=== PATIENT | male | born 1990 | race Caucasian/White ===

== ENCOUNTER → 2020-02-16 11:13 | Outpatient (BNVA) | payer BC, SELFPAY | PROVIDERS: Family Provider Registered Nurse; Visit Provider Podiatrist Foot & Ankle Surgery | DX: S92.352A Displaced fracture of fifth metatarsal bone, left foot, initial encounter for closed fracture (principal); X58.XXXA Exposure to other specified factors, initial encounter | CPT/HCPCS: 73630 ==

== ENCOUNTER 2020-02-16 14:17 | Outpatient (CLI) | payer BC, SELFPAY | END 2020-02-16 14:18 | disposition home or self-care (01) | LOC: SPT 14:18 | PROVIDERS: Family Provider Registered Nurse; Visit Provider Podiatrist Foot & Ankle Surgery | DX: Z46.89 Encounter for fitting and adjustment of other specified devices (principal); S92.335D Nondisplaced fracture of third metatarsal bone, left foot, subsequent encounter for fracture with routine healing; X58.XXXD Exposure to other specified factors, subsequent encounter | CPT/HCPCS: 97760; L4361 ==

== ENCOUNTER → 2020-03-08 13:28 | Outpatient (BNVA) | payer OTHER, SELFPAY | PROVIDERS: Family Provider Registered Nurse; Visit Provider Podiatrist Foot & Ankle Surgery | DX: S92.352A Displaced fracture of fifth metatarsal bone, left foot, initial encounter for closed fracture (principal); S92.355A Nondisplaced fracture of fifth metatarsal bone, left foot, initial encounter for closed fracture; X58.XXXA Exposure to other specified factors, initial encounter | CPT/HCPCS: 73630 ==

== ENCOUNTER → 2020-03-25 13:12 | Outpatient (BNVA) | payer OTHER, SELFPAY | PROVIDERS: Family Provider Registered Nurse; Visit Provider Podiatrist Foot & Ankle Surgery | DX: S92.355A Nondisplaced fracture of fifth metatarsal bone, left foot, initial encounter for closed fracture (principal); X58.XXXA Exposure to other specified factors, initial encounter | CPT/HCPCS: 73630 ==

== ENCOUNTER → 2020-04-15 09:47 | Outpatient (BNVA) | payer OTHER, SELFPAY | PROVIDERS: Family Provider Registered Nurse; Visit Provider Podiatrist Foot & Ankle Surgery | DX: S92.352A Displaced fracture of fifth metatarsal bone, left foot, initial encounter for closed fracture (principal); S92.355A Nondisplaced fracture of fifth metatarsal bone, left foot, initial encounter for closed fracture; X58.XXXA Exposure to other specified factors, initial encounter | CPT/HCPCS: 73630 ==

== ENCOUNTER → 2020-05-08 12:59 | Outpatient (BNVA) | payer OTHER, SELFPAY | PROVIDERS: Family Provider Registered Nurse; Visit Provider Podiatrist Foot & Ankle Surgery | DX: S92.355A Nondisplaced fracture of fifth metatarsal bone, left foot, initial encounter for closed fracture (principal); Z11.52 Encounter for screening for COVID-19; X58.XXXA Exposure to other specified factors, initial encounter | CPT/HCPCS: 87635 ==

== ENCOUNTER 2020-05-14 06:01 | Day surgery (SDC) | payer OTHER, SELFPAY ==
[2020-05-13 16:06] VITALS: BMI 29.6
[2020-05-14] VITALS (9 sets, daily range): BP systolic 109–135; BP diastolic 65–87; PULSE 47–54; RESP 16–18; TEMP 36.1–36.9; O2SAT 95–100
--- NOTE | 2020-05-14 06:19 | ANES.PREANE2 ---
Pre-Anesthetic Assessment Pre-Anesthetic Assessment: Height/Weight: Height 1.73 m Weight 88.451 kg Preop Diagnosis: Left fifth metatarsal fracture Proposed Procedure: Operation Date: 05/14/20 07:00 Proposed Procedures p ORIF Left Fifth Metatarsal Fracture 72138 S92.355A(Left) - Madan Dean, DPM Was Beta Yanely taken within 24 hours: N/A Social: Social History: No alcohol and No tobacco Exam: Pre-Anes Outpt Exam: alert, oriented x 3, clear to auscultation bilaterally and regular rate & rhythm Airway: Submandibular: WNL Cervical ROM: WNL MP: 2 History/ROS: No significant complaints Pulmonary: Pulmonary: None reported CV/HEM: CV/HEM: None reported : : None reported Hepatic: Hepatic: None reported GI: GI: None reported Metabolic: Metabolic: None reported Musc/skel: Musc/skel: None reported Neuropsych: Neuropsych: None reported Anesthetic Plan: ASA status: 1 Anesthesia: General PFSH Anesthesia PFSH: Medical History History of fracture of left ankle Surgical History History of right knee surgery Family History Mother Cancer Grandfather Hypertension Grandmother Hypertension Social History Smoking and tobacco status: never smoked Second hand smoke exposure: No Alcohol intake: never Data Anesthesia Cardiac Studies: No Data to Display
--- NOTE | 2020-05-14 06:33 | PM.OPSURHP ---
Providers/Chief Complaint Primary Care Provider: URSULA Shell Chief Complaint: Left 5th Metatarsal fracture History of Present Illness Alejandro Roberts is a 30 year old male patient here today for evaluation of Closed nondisplaced fracture of fifth metatarsal bone of left foot. DOI: 02/07/2020. He is almost 10 weeks out from his injury. He endorses no pain at time of triage. Patient has been weight bearing as tolerated in a cam boot. Patient has been elevating some when at home. Who presents preop for surgical consultation and plan for surgery today is ORIF of left fifth metatarsal due to nonhealing. Patient denies any subjective nausea, vomiting, fever, chills, shortness of breath or chest pain. Review of Systems General: Reports: 10 or more systems reviewed and unremarkable except in HPI and below Const: Denies: fever(s), chills or fatigue Eyes: Denies: change in vision Card: Reports: swelling of feet/ankles; Denies: chest pain or palpitations Resp: Denies: dyspnea GI: Denies: abdominal pain, nausea, vomiting, diarrhea or constipation Musc: Reports: extremity pain Skin/Breast: Denies: changes in skin color Neuro: Reports: difficulty walking; Denies: numbness in extremities Medications/Allergies Home Medications Medication Instructions Recorded Confirmed Last Taken Type cam boot #1 ea 02/16/20 04/15/20 Unknown Rx Allergies Allergy/AdvReac Type Severity Reaction Status Date / Time No Known Allergies Allergy Verified 05/14/20 06:26 PFSH PFSH: Medical History History of fracture of left ankle Surgical History History of right knee surgery Family History Mother Cancer Grandfather Hypertension Grandmother Hypertension Social History Smoking and tobacco status: never smoked Second hand smoke exposure: No Alcohol intake: never Vital Signs Vitals Signs: Last Vital Signs Temp 96.9 F L 05/14/20 06:13 Pulse 50 L 05/14/20 06:13 Resp 18 05/14/20 06:13 BP 135/79 05/14/20 06:13 Pulse Ox 97 05/14/20 06:13 Weight: Weight last 48 hrs Weight 195 lb Physical Exam Narrative: EXAM NARRATIVE: Patient is alert and oriented ?3 and in no acute distress. The following is a focused bilateral lower extremity exam. VASCULAR: Dorsalis pedis and posterior tibial arteries palpable +2. Capillary refill time less than 3 seconds to the distal hallux bilaterally. Calf is supple and nontender proximally and distally. No pedal edema appreciated. Pedal hair growth present. NEUROLOGICAL: Epicritic and protopathic sensations grossly intact to the lower extremities. +2 Achilles tendon reflex noted bilaterally. Negative Tinel sign upon percussion of lower extremity nerves. DERMATOLOGICAL: Lower extremity skin is well-hydrated, normal texture and turgor. There are no open sores or lesions noted to the lower extremities. No erythema or ecchymosis present to the bilateral legs and feet. Dystrophic left great toenail MUSCULOSKELETAL: Pain to palpation left fifth metatarsal proximally. No palpable mass along the course of the plantar fascia appreciated. No pain to palpation along the course of the bilateral Achilles tendon. No pain to palpation along the course posterior tibial tendon or peroneal tendons. No pain with [id number] compression of calcaneus, bilaterally. Muscle strength is 5/5 in all 3 cardinal planes pain-free without guarding to the foot and ankle, bilaterally Resp: COMMON NORMALS: normal respiratory effort, No retractions, No use of accessory muscles, clear to auscultation bilaterally and percussion normal EFFORT & INSPECTION: Yes able to speak in complete sentences and Yes symmetric chest movement Cardio: COMMON NORMALS: regular rate, regular rhythm, S1 normal heart sound present, S2 normal heart sound present and Peripheral pulses 2+ throughout A&P Assessment and plan (1) Left foot pain: Status: Acute (2) Nondisplaced fracture of fifth left metatarsal bone with delayed healing: Status: Acute Qualifiers: Fracture type: closed Qualified Code(s): S92.355G - Nondisplaced fracture of fifth metatarsal bone, left foot, subsequent encounter for fracture with delayed healing Sustained a left fifth metatarsal fracture greater than 3 months of conservative care consisting of nonweightbearing, utilizing crutches and Cam boot as has a delayed union and is continued to be symptomatic he has pain with weightbearing in a cam boot at this time. Discussed surgical fixation he would like to proceed. Risks include pain, bleeding, numbness, infection, delayed union, malunion, nonunion, hardware failure, hardware irritation, damage to adjacent soft tissue structures and need for further surgical intervention. Patient is agreeable wishes to proceed. Also risk for DVT, PE, heart attack, stroke and . I evaluated patient preoperatively informed consent is signed, all questions answered to patient satisfaction. No guarantees written, expressed or implied. Patient wishes to proceed. Coding Level of Care Code Acute Alarm Technician for Chg Fwd Diagnoses Left foot pain M79.672 Nondisplaced fracture of fifth left metatarsal bone with delayed healing S92.355G Fracture type: closed
--- NOTE | 2020-05-14 06:36 | W.PM.OPSUD ---
Surgery/Procedure H&P Update DATE OF PROCEDURE: May 14, 2020 DATE H&P PERFORMED: 04/16/20 H&P UPDATE INFORMATION: I have reviewed H&P completed within last 30 days, I have examined patient prior to procedure, No changes to prior documentation and H&P is in [facility] [place] [facility] on date indicated PREOP DIAGNOSIS: Left fifth metatarsal fracture PLANNED PROCEDURE: Operation Date: 05/14/20 07:00 Proposed Procedures p ORIF Left Fifth Metatarsal Fracture 15998 S92.355A(Left) - Madan Dean DPM
--- NOTE | 2020-05-14 06:37 | P.OP_ITS ---
Operative Report Date of procedure: May 14, 2020 Pre-op Diagnosis: Left fifth metatarsal fracture Post-op diagnosis: same Procedure Done: Open reduction internal fixation left Fifth Metatarsal Fracture 21513 Implants: [place] 28 partially-threaded headed cannulated screw 5.5 mm x 50 mm, 4-0 Vicryl, 4-0 nylon Specimens removed/disposition: None Pathology: none sent Surgeon: Madan Dean D.P.M. Independent Film Maker: Richie Anesthesia: MAC Estimated blood loss: Less than 5 mL Tourniquet time: See intraoperative documentation IV fluids: None Urine output: None Complications: None Findings: None Condition: stable Disposition: PACU Brief History: 3 months of failed conservative treatment and delayed union appreciated at the left fifth metatarsal fracture. Patient received to undergo surgical intervention so he can get back to normal activities and increases chances of healing. Risks discussed at length versus benefits preoperatively. All questions answered to patient satisfaction. Informed consent is signed, patient wishes to proceed. Procedure: Under mild sedation the patient was brought to the operating room and placed on the operating table in supine position. A timeout was performed. Anesthesia was administered by the anesthesia service. Local anesthesia injected by myself 20 cc of 1% lidocaine and 0.5 so Marcaine plain one-to-one mixture and a proximal field block to the left lateral foot. Well-padded pneumatic tourniquet applied to the left ankle. Left lower extremity was then scrubbed, prepped and draped utilizing normal aseptic technique. Left foot was examined a weighted with an Esmarch bandage and a tourniquet inflated to 250 mmHg. Attention was directed to the left fifth metatarsal where a percutaneous guidewire was inserted down the intramedullary canal this was confirmed with AP oblique and lateral views and noted to be in the center of the left fifth metatarsal intramedullary canal. Next utilizing standard AO technique a [place] 28 5.5 mm partially-threaded cannulated headed screw was inserted across the fracture site from proximal to distal with excellent bony apposition and compression noted. Placement of orthopedic hardware confirmed with intraoperative fluoroscopy noted be excellent in all 3 cardinal planes with excellent compression at the fracture site. Incision site was flushed with saline solution and subcutaneous tissue closed utilizing 4-0 Vicryl skin closed utilizing 4-0 nylon. Tourniquet was deflated and a prompt hyperemic response is noted to the distal digits of the left foot. Patient tolerated the procedure and anesthesia well and was transferred to the PACU with vital signs stable and vascular status intact. Following a period of postoperative monitoring he will be discharged home is to remain strict nonweightbearing to the left lower extremity. He was prescribed [place] 10/325 mg to be taken as needed judiciously every 4-6 hours for pain. This was sent to [facility] in [place]. Patient given my cell phone number is to contact with any postoperative questions or concerns. He is to take an 81 mg aspirin once daily for DVT prophylaxis.
[2020-05-14] MEDS: sodium chloride 0.9% 1,000 ML 30 ML IV (06:49)
[2020-05-14] MEDS: lidocaine 1% INJ 20 mL INJECTION (07:29)
--- NOTE | 2020-05-14 08:17 | XR_ITS ---
WS: [id number] Left foot, 3 views, 05/14/2020 Clinical Data: post op Comparison: Left foot, 04/15/2020. Findings: There is an orthopedic screw in the proximal portion of the left fifth metatarsal reducing the proxim al fracture. The repair of the bimalleolar fracture with internal fixation has not changed. XR/XR foot LT min 3V* [id number] Impression: Internal fixation of left fifth metatarsal fracture.
--- NOTE | 2020-05-14 09:16 | ANE.PACU2 ---
Inpatient post-anesthesia follow up: Airway intact: Yes Vital signs: Temperature 98.4 F Pulse Rate 50 Respiratory Rate 18 Blood Pressure 134/87 Pulse Oximetry 100 Oxygen Delivery Me thod Room Air Oxygen Flow Rate Fraction of Inspir ed Oxygen Hydration adequate: Yes Nausea and vomiting: No Pain level: 2 Mental status: Baseline
[2020-05-14] MEDS: HYDROcodone-acetaminophen 10-325 mg Tablet 1 TAB PO (09:40)
== END 2020-05-14 09:36 | disposition home or self-care (01) ==
PROVIDERS: PCP Registered Nurse; Visit Provider Podiatrist Foot & Ankle Surgery
PROC: (CPT 28485; principal; 2020-05-14 07:00)
DX: S92.352A Displaced fracture of fifth metatarsal bone, left foot, initial encounter for closed fracture (principal); X58.XXXA Exposure to other specified factors, initial encounter
CPT/HCPCS: 28485; 73630; 96365; C1713; J0690; J2250; J2405; J2704; J3010; J3490; J7030

== ENCOUNTER → 2020-05-28 14:09 | Outpatient (BNVA) | payer OTHER, SELFPAY | PROVIDERS: PCP Registered Nurse; Visit Provider Podiatrist Foot & Ankle Surgery | DX: Z48.89 Encounter for other specified surgical aftercare (principal); S92.355G Nondisplaced fracture of fifth metatarsal bone, left foot, subsequent encounter for fracture with delayed healing | CPT/HCPCS: 73630 ==

== ENCOUNTER → 2020-06-10 13:18 | Outpatient (BNVA) | payer OTHER, SELFPAY | PROVIDERS: PCP Registered Nurse; Visit Provider Podiatrist Foot & Ankle Surgery | DX: Z48.89 Encounter for other specified surgical aftercare (principal) | CPT/HCPCS: 73630 ==

== ENCOUNTER → 2020-06-24 13:15 | Outpatient (BNVA) | payer OTHER, SELFPAY | PROVIDERS: PCP Registered Nurse; Visit Provider Podiatrist Foot & Ankle Surgery | DX: Z48.89 Encounter for other specified surgical aftercare (principal); Z98.890 Other specified postprocedural states | CPT/HCPCS: 73630 ==

== ENCOUNTER → 2020-07-08 13:33 | Outpatient (BNVA) | payer OTHER, SELFPAY | PROVIDERS: PCP Registered Nurse; Visit Provider Podiatrist Foot & Ankle Surgery | DX: Z48.89 Encounter for other specified surgical aftercare (principal); S92.355G Nondisplaced fracture of fifth metatarsal bone, left foot, subsequent encounter for fracture with delayed healing; M79.672 Pain in left foot; X50.1XXD Overexertion from prolonged static or awkward postures, subsequent encounter | CPT/HCPCS: 73630 ==

== ENCOUNTER → 2020-07-27 14:25 | Outpatient (BNVA) | payer OTHER, SELFPAY | PROVIDERS: PCP Registered Nurse; Visit Provider Podiatrist Foot & Ankle Surgery | DX: Z48.89 Encounter for other specified surgical aftercare (principal); S92.355G Nondisplaced fracture of fifth metatarsal bone, left foot, subsequent encounter for fracture with delayed healing; X50.1XXD Overexertion from prolonged static or awkward postures, subsequent encounter | CPT/HCPCS: 73630 ==

== ENCOUNTER → 2020-08-09 11:49 | Outpatient (BNVA) | payer OTHER, SELFPAY | PROVIDERS: PCP Registered Nurse; Visit Provider Podiatrist Foot & Ankle Surgery | DX: Z01.818 Encounter for other preprocedural examination (principal); Z20.822 Contact with and (suspected) exposure to COVID-19 | CPT/HCPCS: 87635 ==

== ENCOUNTER 2020-08-13 06:35 | Day surgery (SDC) | payer OTHER, SELFPAY ==
[2020-08-12 10:15] VITALS: BMI 30.4
--- NOTE | 2020-08-13 | SCC_ITS ---
Procedure Done: Deep Hardware Removal Left Foot CPT code 88205 MTDD
--- NOTE | 2020-08-13 06:33 | P.HPUD_ITS ---
Surgery/Procedure H&P Update DATE OF PROCEDURE: August 13, 2020 DATE H&P PERFORMED: 04/16/20 H&P UPDATE INFORMATION: I have reviewed H&P completed within last 30 days, I have examined patient prior to procedure, No changes to prior documentation and H&P is in [facility] [place] [place] EMR on date indicated PREOP DIAGNOSIS: Left fifth metatarsal fracture PLANNED PROCEDURE: Operation Date: 08/13/20 07:55 Proposed Procedures p Deep Hardware Removal Left Foot 24385 T84.84XA(Left) - Madan Daen DPM
--- NOTE | 2020-08-13 06:33 | P.OP_ITS ---
Operative Report Date of procedure: August 13, 2020 Pre-op Diagnosis: Painful retained hardware left fifth metatarsal Post-op diagnosis: same Procedure Done: Deep Hardware Removal Left Foot CPT code 95466 Implants: 4-0 nylon Specimens removed/disposition: 5.5 mm [place] screw Pathology: none sent Surgeon: Madan Reeves Integrated Specialist: Jordyn Anesthesia: MAC Estimated blood loss: Less than 5 mL Tourniquet time: See intraoperative documentation IV fluids: None Urine output: None Complications: None Condition: stable Disposition: PACU Brief History: Painful retained hardware left foot discussed hardware removal as next step patient is wishing to proceed. Risks include pain, bleeding, numbness, infection, refracture of fifth metatarsal, delayed healing, need for further surgical intervention including internal fixation. Damage to adjacent soft tissue structures, numbness and swelling. Patient has been n.p.o. since midnight, informed consent signed by the patient and myself I initialed his left foot. No guarantees written, expressed or implied, patient wishes to proceed. Procedure: Under mild sedation the patient was brought to the operating room and placed on operating table in supine position. A timeout was performed. Anesthesia was then administered by the anesthesia service. Local anesthesia injected by myself consisting of one-to-one mixture 1% lidocaine 0.5% Marcaine plain total of 30 cc and a reverse Amaya block. Well-padded pneumatic tourniquet applied to the left ankle. Left lower extremity was then scrubbed, prepped and draped utilizing normal aseptic technique. Left foot was exaggerated with an Esmarch bandage and a tourniquet inflated to 250 mmHg. Attention was directed to the lateral aspect of the left foot where previous healed cicatrix was visualized directly over the previous incision a linear longitudinal incision was made with a #15 blade. This is approximately 2 cm in length. Blunt dissection and sharp dissection carried down to the fifth metatar mg base with care taken to retract and preserve neurovascular tendinous structures. All bleeders were ligated and cauterized as necessary. A K wire was utilized under fluoroscopy to be inserted into the cannula of the fifth metatarsal screw. Once K wire was inserted a cannulated screwdriver was utilized to remove the left fifth metatarsal screw which was then passed from operative field. Intraoperative fluoroscopy confirmed no further remaining implant or implant breakage. The incision was flushed with saline solution. Fluoroscopy confirmed bicortical healing of previously noted fracture. This remained unchanged after having performed hardware removal. Another saline flush was performed with copious amounts of sterile saline at the incision which was then closed utilizing 4-0 nylon. Area was dressed with Adaptic, sterile 4 x 4, Kerlix and Venu wrap followed by application of cam boot. Tourniquet was deflated and a prompt hyperemic response is noted to the distal digits of the left foot. Patient tolerated the procedure and anesthesia well and was transferred to the PACU with vital signs stable and vascular status intact. Following a period of postoperative monitoring he will be discharged home was given discharge instructions on discharge paperwork as well as follow-up.
[2020-08-13 06:53] VITALS: BP 126/80; PULSE 53; RESP 18; TEMP 36.7; O2SAT 96
[2020-08-13] MEDS: sodium chloride 0.9% 1,000 ML 30 ML IV (06:58)
--- NOTE | 2020-08-13 07:07 | ANES.PREANE2 ---
Pre-Anesthetic Assessment Pre-Anesthetic Assessment: Height/Weight: Height 1.73 m Weight 90.718 kg Temp Pulse Resp BP Pulse Ox 98.0 F 53 L 18 126/80 96 08/13/20 06:53 08/13/20 06:53 08/13/20 06:53 08/13/20 06:53 08/13/20 06:53 Preop Diagnosis: Painful hardawre Proposed Procedure: Operation Date: 08/13/20 07:55 Proposed Procedures p Deep Hardware Removal Left Foot 37277 T84.84XA(Left) - Madan Dean DPM Familial anesthetic complications: None Was Beta Yanely taken within 24 hours: N/A Was Clonidine taken within 24 hours: N/A Last intake: Intake Last Liquid Date 08/12/20 Last Liquid Time 19:00 Last Solid Date 08/12/20 Last Solid Time 19:00 Social: Social History: No alcohol and No tobacco Exam: Pre-Anes Outpt Exam: alert, oriented x 3, clear to auscultation bilaterally and regular rate & rhythm Airway: Cervical ROM: WNL MP: 2 Dentition: Full Additional comments: tierney Anesthetic Plan: ASA status: 1 Anesthesia: MAC Risk of > 500 ml blood loss (7ml/kg in children): No Meds/Allergies Current Medications: Current Medications Generic Name Dose Route Start Last Admin Trade Name Freq PRN Reason Stop Dose Admin Sodium Chloride 1,000 mls @ 30 ml s/hr 08/13/20 06:45 08/13/20 06:58 Sodium Chloride 0.9% IV 08/14/20 06:44 30 mls/hr .Q24H PHU Administration PFSH Anesthesia PFSH: Medical History History of fracture of left ankle Surgical History History of right knee surgery Family History Mother Cancer Grandfather Hypertension Grandmother Hypertension Social History Smoking and tobacco status: never smoked Second hand smoke exposure: No Alcohol intake: never Data Anesthesia Cardiac Studies: No Data to Display
[2020-08-13 08:31] VITALS: BP 120/76; PULSE 57; RESP 18; TEMP 36.5; O2SAT 97
[2020-08-13 08:35] VITALS: BP 120/73; PULSE 56; RESP 16; O2SAT 96
--- NOTE | 2020-08-13 08:35 | XR_ITS ---
WS: [id number] Left foot, 3 views, 08/13/2020 Clinical Data: post op Comparison: Left foot, 07/27/2020. Findings: The orthopedic screw in the left fifth metatarsal has been removed. There is diffuse demineralization of the foot. The internal fixation of the bimalleolar fracture remains same. XR/XR foot LT min 3V* [id number] Impression: Removal of orthopedic screw from left fifth metatarsal.
[2020-08-13 08:40] VITALS: BP 122/82; PULSE 58; RESP 16; TEMP 36.5; O2SAT 96
[2020-08-13 08:45] VITALS: BP 122/79; PULSE 62; RESP 17; TEMP 36.5; O2SAT 98
--- NOTE | 2020-08-13 10:25 | P.HP_ITS ---
Providers/Chief Complaint Primary Care Provider: URSULA Shell Chief Complaint: Deep hardware removal Left foot History of Present Illness Alejandro Roberts is a 30 year old male has painful retained hardware left foot secondary to a Sor[place] fracture that underwent ORIF. He is requesting hardware removal. He is presenting to preop has been n.p.o. since midnight, patient denies any subjective nausea, vomiting, fever, chills, shortness of breath or chest pain. Review of Systems General: Reports: 10 or more systems reviewed and unremarkable except in HPI and below Const: Denies: fever(s) or chills Eyes: Denies: change in vision Card: Denies: chest pain or palpitations Resp: Denies: dyspnea or productive cough GI: Denies: abdominal pain, nausea or vomiting : Denies: flank pain Musc: Reports: extremity pain, joint pain, joint stiffness, limited range of motion and deformity Skin/Breast: Reports: skin tenderness; Denies: rash Neuro: Reports: difficulty walking; Denies: numbness in extremities, sensory changes or frequent falls Psych: Denies: suicidal ideation Narciso/Lymph: Denies: easy bruising Medications/Allergies Home Medications Medication Instructions Recorded Confirmed Last Taken Type cam boot #1 ea 02/16/20 07/27/20 Unknown Rx crutches #1 ea 06/30/20 07/27/20 Unknown Rx calcium 100 mg PO DAILY 08/12/20 08/12/20 08/11/20 History Allergies Allergy/AdvReac Type Severity Reaction Status Date / Time No Known Allergies Allergy Verified 08/13/20 06:43 PFSH PFSH: Medical History History of fracture of left ankle Surgical History History of right knee surgery Family History Mother Cancer Grandfather Hypertension Grandmother Hypertension Social History Smoking and tobacco status: never smoked Second hand smoke exposure: No Alcohol intake: never Vital Signs Vitals Signs: Last Vital Signs Temp 97.7 F 08/13/20 08:45 Pulse 62 06/11/21 08:45 Resp 17 08/13/20 08:45 BP 122/79 08/13/20 08:45 Pulse Ox 98 08/13/20 08:45 Weight: Weight last 48 hrs Weight 200 lb Weight 200 lb Physical Exam Narrative: EXAM NARRATIVE: GENERAL: Patient is alert and oriented ?3 and in no acute distress. The following is a focused bilateral lower extremity exam. VASCULAR: Dorsalis pedis and posterior tibial arteries palpable +2. Capillary refill time less than 3 seconds to the distal hallux bilaterally. Calf is supple and nontender proximally and distally. No pedal edema appreciated. Pedal hair growth present. NEUROLOGICAL: Epicritic and protopathic sensations grossly intact to the lower extremities. +2 Achilles tendon reflex noted bilaterally. Negative Tinel sign upon percussion of lower extremity nerves. DERMATOLOGICAL: Cicatrix to the left lateral foot. No erythema ecchymosis or drainage. MUSCULOSKELETAL: Pain to palpation at the left fifth metatarsal base at screw to bone interface. Pain with resistance against eversion of the left foot. Muscle strength 5 out of 5 in all 3 cardinal planes to the left foot and ankle. Resp: COMMON NORMALS: normal respiratory effort, No retractions, No use of accessory muscles and clear to auscultation bilaterally EFFORT & INSPECTION: Yes able to speak in complete sentences and Yes symmetric chest movement Cardio: COMMON NORMALS: regular rate, regular rhythm and Peripheral pulses 2+ throughout RATE: regular rate HEART SOUNDS: S1 normal heart sound present and S2 normal heart sound present PERIPHERAL PULSES: Peripheral pulses 2+ throughout A&P Assessment and plan (1) Painful orthopaedic hardware: Status: Acute Painful retained hardware left foot. Patient wishing to proceed with hardware removal today 08/13/2020. Has been n.p.o. since midnight. Risks include pain, bleeding, numbness, infection, refracture of fifth metatarsal, damage to adjacent soft tissue structures including nerve and tendon. Chronic swelling, need for further surgical intervention, delayed union, nonunion, malunion. Patient wishes to proceed informed consent signed by myself and patient all questions answered to his satisfaction. I initialed his left foot he wishes to proceed no guarantees written, expressed or implied. Deep hardware removal left foot 08/13/2020 outpatient MAC anesthesia follow-up in podiatry clinic next 08/20/2020 Coding Level of Care Code Acute Double Cut Off Saw Operator for Chg Fwd Diagnoses Painful orthopaedic hardware T84.84XA
== END 2020-08-13 09:14 | disposition home or self-care (01) ==
PROVIDERS: PCP Registered Nurse; Visit Provider Podiatrist Foot & Ankle Surgery
PROC: (CPT 20680; principal; 2020-08-13 07:45)
DX: T84.84XA Pain due to internal orthopedic prosthetic devices, implants and grafts, initial encounter (principal)
CPT/HCPCS: 20680; 73630; 96365; J0690; J2704; J3010; J3490; J7030

== ENCOUNTER → 2020-08-17 14:58 | Outpatient (BNVA) | payer OTHER, SELFPAY | PROVIDERS: PCP Registered Nurse; Visit Provider Podiatrist Foot & Ankle Surgery | DX: Z48.89 Encounter for other specified surgical aftercare (principal); S92.355G Nondisplaced fracture of fifth metatarsal bone, left foot, subsequent encounter for fracture with delayed healing; M79.672 Pain in left foot | CPT/HCPCS: 73630 ==

== ENCOUNTER 2020-09-02 15:56 | Emergency (ER) | payer OTHER, SELFPAY ==
--- NOTE | 2020-09-02 16:27 | XRR_ITS ---
PROCEDURE INFORMATION: Exam: XR Chest Exam date and time: 09/02/2020 4:27 PM Age: 30 years old Clinical indication: Cough and shortness of breath and other: N/d; Patient HX: N/d, cough, SOB, body aches TECHNIQUE: Imaging protocol: XR of the chest. Views: 1 view. COMPARISON: CT abdomen wo con [id number] 09/27/2018 1:35 PM FINDINGS: Lungs: Small areas of poorly defined vague hazy patchy airspace opacities in the lower lungs. Mildly decreased lung volumes. Pulmonary interstitium is unremarkable. No vascular dilation. Pleural spaces: Unremarkable. No pleural effusion. No pneumothorax. Heart/Mediastinum: Unremarkable. No cardiomegaly. Bones/joints: Unremarkable. XR/XR chest 1V portable [id number] IMPRESSION: Subtle findings of patchy airspace disease in the lower lungs bilaterally. Suspect atypical pneumonia. Recommend correlation for COVID-19 pneumonia.
[2020-09-02 17:10] VITALS: BP 116/82; PULSE 66; RESP 18; TEMP 37; O2SAT 96; BMI 30.4
--- NOTE | 2020-09-02 17:16 | ED_ITS ---
HPI - COVID General: Chief Complaint: COVID symptoms Stated Complaint: SOB Time Seen by Provider: 09/02/20 17:15 Triage information: Has fever, cough or shortness of breath . No known COVID + exposure last 14 days History of Present Illness: HPI Narrative: Patient comes in today for complaints of cough and congestion with fever for 7 days. Patient reports some shortness of breath starting yesterday. Patient appears mildly unwell. Patient appears no acute distress. Patient also has a light rash to the bilateral extremities. Patient is alert and oriented. COVID 19 common symptoms: positive dyspnea COVID Results: SARS-CoV-2 Antigen (Rapid) Negative (Negative) 09/02/20 18:30 09/02/20 Nasal/Oral Coronavirus 2019 PCR Not detected 08/09/20 11:49 08/09/20 Review of Systems General: Reports: 10 or more systems reviewed and unremarkable except in HPI and below Resp: Reports: dyspnea [facility] ED PFSH: Medical History History of fracture of left ankle Surgical History History of right knee surgery Family History Mother Cancer Grandfather Hypertension Grandmother Hypertension Social History Smoking and tobacco status: never smoked Second hand smoke exposure: No Alcohol intake: never Physical Exam Const: COMMON NORMALS: no acute distress and patient oriented x3 GENERAL APPEARANCE: cooperative HENMT: COMMON NORMALS: normocephalic, TM's normal bilaterally and Normal external nose present HEAD & SCALP: normal to inspection and normocephalic NOSE: Normal external nose present and Nasal discharge present TYMPANIC MEMBRANE: TM's normal bilaterally MOUTH: Normal oral and palatal mucosa present THROAT: posterior oropharynx normal Eye: GENERAL EYE: appearance normal, both eyes and all related structures Neck/C-Spine: COMMON NORMALS: full ROM Lymph: LYMPHATIC: no lymphadenopathy noted Chest: COMMONS NORMALS: normal inspection of the chest Resp: COMMON NORMALS: normal respiratory effort EFFORT & INSPECTION: Yes able to speak in complete sentences AUSCULTATION: diminished lung sounds Cardio: COMMON NORMALS: regular rate and regular rhythm RATE: regular rate RHYTHM: regular rhythm GI: COMMON NORMALS: non-tender : COMMON NORMALS: Yes no CVA tenderness BLADDER/KIDNEY EXAM: Yes no CVA tenderness Back/Pelvis: COMMON NORMALS: no CVA tenderness and thoracic and lumbar spine normal to inspection Extremity: COMMON NORMALS: normal to inspection Neuro: COMMON NORMALS: patient oriented x3 and moves all extremities Psych: COMMON NORMALS: mental status grossly normal and cooperative Skin: COMMON NORMALS: no rashes or lesions noted GENERAL SKIN EXAM: no rashes or lesions noted Course ED course: 1999, patient's COVID-19 test in the emergency room which is a antigen test was negative. Patient had purchased a home antigen test from [facility] and it tested positive. I was not notified of this during my initial evaluation. With patient's positive home test and a chest x-ray that is suspicious for COVID-19 pneumonia I feel the patient probably has COVID-19 pneumonia. Vital Signs: Vital signs: Vital Signs Temperature 98.6 F 09/02/20 17:10 Pulse Rate 66 09/02/20 17:10 Respiratory Rate 18 09/02/20 17:10 Blood Pressure 116/82 09/02/20 17:10 Pulse Oximetry 96 09/02/20 17:10 MDM - COVID MDM Narrative: Medical decision making narrative: Patient comes in today for complaints of shortness of breath and cough. Patient has been ill for 1 week with cough and fever. Patient reports no fever today. Patient reports that he had a positive COVID-19 test from a home evaluation test. On exam respirations were even decreased based lung sounds. Vital signs are normal. Differential diagnosis includes COVID-19 pneumonia, bacterial pneumonia, respiratory distress. Chest x-ray noted some patchy infiltrates bilaterally suggestive of viral pneumonia such as COVID-19. Laboratory values CBC and CMP were unremarkable. Patient is not hypoxic. We will go ahead and treat patient with steroids, azithromycin, and albuterol inhaler. Encourage plenty of fluids and follow-up with primary care or return to the ER for worsening symptoms. Patient reported understanding and agreed to plan. Lab Data: Labs: Lab Results 09/02/20 09/02/20 09/02/20 Range/Units 18:26 18:26 18:30 WBC 4.6 (4.0-10.0) 10^3/ uL RBC 4.87 (4.1-5.3) 10^6/u L Hgb 14.3 (11.7-16.6) g/dL Hct 42.3 (42.0-52.0) % MCV 86.9 (80-94) fL MCH 29.4 (28.0-34.0) pg MCHC 33.8 (30.0-36.0) g/dL RDW 11.7 L (12.1-15.1) % Plt Count 165 (130-400) 10^3/c mm MPV 11.3 H (7.4-10.4) fL Neut % (Auto) 72.5 % Lymph % (Auto) 21.7 % [place] % (Auto) 5.0 % Eos % (Auto) 0.4 % Baso % (Auto) 0.2 % Neut # (Auto) 3.31 (1.8-7.7) 10^3/u L Lymph # (Auto) 1.0 (0.8-4.8) 10^3/u L [place] # (Auto) 0.2 (0.2-0.9) 10^3/u L Eos # (Auto) 0.0 (0.0-0.8) 10^3/u L Baso # (Auto) 0.0 (0.0-0.1) 10^3/u L Nucleated RBC % (a uto) 0 % Nucleated RBCs # 0.0 /100WBC Sodium 138 (136-145) mmol/L Potassium 4.0 (3.5-5.1) mmol/L Chloride 104 (98-107) mmol/L Carbon Dioxide 24 (22-29) mmol/L Anion Gap 14.0 (5-19) BUN 7 (6-20) mg/dL Creatinine 0.7 (0.7-1.2) mg/dL GFR Calculation 133.3 H (90-130) mL/min Glucose 91 (65-115) mg/dL Calculated Osmolal ity 284 L (285-295) mOsm/k g Calcium 8.1 L (8.5-10.5) mg/dL Total Bilirubin 0.4 (0.15-1.2) mg/dL AST 29 (0-40) U/L ALT 26 (0-41) U/L Alkaline Phosphata se 74 (40-130) IU/L Total Protein 6.7 (6.6-8.7) g/dL Albumin 3.9 (3.5-5.2) g/dL Globulin 2.8 (1.3-4.6) g/dL SARS-CoV-2 Ag (Rap id) Negative (Negative) COVID Results: SARS-CoV-2 Antigen (Rapid) Negative (Negative) 09/02/20 18:30 09/02/20 Nasal/Oral Coronavirus 2019 PCR Not detected 08/09/20 11:49 08/09/20 Discharge Plan Discharge Patient Disposition: Home Clinical Impression: Pneumonia due to COVID-19 virus Condition: Stable Prescriptions: New dexamethasone 6 mg tablet 6 mg PO DAILY 5 Days Qty: 5 RF: 0 albuterol sulfate 90 mcg/actuation HFA aerosol inhaler 2 inh inhalation Q4H PRN (Reason: shortness of breath or wheezing) Qty: 8.5 RF: 0 azithromycin 500 mg tablet 500 mg PO DAILY 3 Days Qty: 3 RF: 0 No Action (DME) cam boot See Rx Instructions .Route .MEDSUPPLY Qty: 1 RF: 0 (DME) crutches See Rx Instructions .Route .MEDSUPPLY Qty: 1 RF: 0 calcium 100 mg Capsule 100 mg PO DAILY RF: 0 Discharge Orders: Discharge ED (Routine); Ordered 09/02/20 Ordered By: Josue Arroyo Referrals: Sachin Alicea FNP [Primary Care Provider] - Discharge Diet: Usual diet Discharge Activity: Increase activity as tolerated Patient Instructions: Pneumonia (ED), Opioid Safety Activity Restrictions/Additional Instructions: Drink plenty of fluids. Take medications as directed. Healthy diet and activity. Follow-up with primary care in 1 week for recheck. Return to the ER for worsening symptoms. Worsening symptoms include a low pulse oxygen level, worsening chest pain, worsening shortness of breath. Stand Alone Forms: Work/School Release Coding Level of Care Code ED Dross Puller for Dotty Fwd Exam Comprehensive
[2020-09-02 18:31] LABS: Basophils % 0.2 %; Eosinophils % 0.4 %; Hematocrit 42.3 % (42.0-52.0); Hemoglobin 14.3 g/dL (11.7-16.6); Lymphocytes % 21.7 %; Mean Corpuscular HGB Conc 33.8 g/dL (30.0-36.0); Mean Corpuscular Hemoglobin 29.4 pg (28.0-34.0); Mean Corpuscular Volume 86.9 fL (80-94); Mean Platelet Volume 11.3 fL (7.4-10.4); Monocytes # 0.2 10^3/uL (0.2-0.9); Neutrophils # 3.31 10^3/uL (1.8-7.7); Neutrophils % 72.5 %; Nucleated Red Blood Cells % 0 %; Platelet Count 165 10^3/cmm (130-400); Red Blood Count 4.87 10^6/uL (4.1-5.3); Red Cell Distribution Width 11.7 % (12.1-15.1); White Blood Count 4.6 10^3/uL (4.0-10.0)
[2020-09-02 18:51] LABS: Alanine Aminotransferase 26 U/L (0-41); Albumin Level 3.9 g/dL (3.5-5.2); Alkaline Phosphatase 74 IU/L (40-130); Aspartate Amino Transferase 29 U/L (0-40); Blood Urea Nitrogen 7 mg/dL (6-20); Calcium 8.1 mg/dL (8.5-10.5); Carbon Dioxide 24 mmol/L (22-29); Chloride 104 mmol/L (98-107); Globulin 2.8 g/dL (1.3-4.6); Glomerular Filtration Rate 133.3 mL/min (90-130); Glucose 91 mg/dL (65-115); Osmolality Calculated 284 mOsm/kg (285-295); Sodium 138 mmol/L (136-145); Total Bilirubin 0.4 mg/dL (0.15-1.2); Total Protein 6.7 g/dL (6.6-8.7)
[2020-09-02 19:53] LABS: SARS Covid-2 Antigen Negative (Negative)
[2020-09-02 20:00] VITALS: O2SAT 97
[2020-09-02 20:09] VITALS: PULSE 69; RESP 17; O2SAT 97
== END 2020-09-02 20:09 | disposition home or self-care (01) ==
PROVIDERS: Emergency Provider Nurse Practitioner Family; PCP Registered Nurse
DX: J18.9 Pneumonia, unspecified organism (principal); B97.29 Other coronavirus as the cause of diseases classified elsewhere
CPT/HCPCS: 71045; 80053; 85025; 87426; 99283

== ENCOUNTER → 2020-09-08 08:09 | Outpatient (BNVA) | payer OTHER, SELFPAY | PROVIDERS: PCP Registered Nurse; Visit Provider Podiatrist Foot & Ankle Surgery | DX: Z48.89 Encounter for other specified surgical aftercare (principal); S92.352D Displaced fracture of fifth metatarsal bone, left foot, subsequent encounter for fracture with routine healing; X58.XXXD Exposure to other specified factors, subsequent encounter | CPT/HCPCS: 73630 ==

== ENCOUNTER → 2021-08-25 13:47 | Outpatient (BNVA) | payer OTHER, SELFPAY | PROVIDERS: PCP Registered Nurse; Visit Provider Registered Nurse | DX: R10.9 Unspecified abdominal pain (principal); K59.00 Constipation, unspecified | CPT/HCPCS: 81000 ==

== ENCOUNTER 2021-10-27 07:17 | Day surgery (SDC) | payer OTHER, SELFPAY ==
[2021-10-25 13:23] VITALS: BMI 31.1
[2021-10-27 07:36] VITALS: BP 127/79; PULSE 61; RESP 18; TEMP 36.3; O2SAT 99
[2021-10-27] MEDS: sodium chloride 0.9% 1,000 ML 30 ML IV (07:40)
--- NOTE | 2021-10-27 08:00 | W.PM.OPSFHP ---
Same Day Surgery H&P Indication for Procedure/HPI DATE OF PROCEDURE: October 27, 2021 CHIEF COMPLAINT/INDICATIONFOR SURGICAL PROCEDURE: History of colon cancer PREOP DIAGNOSIS: Family history of colon cancer PLANNED PROCEDURE: Operation Date: 10/27/21 08:30 Proposed Procedures p Colonoscopy(Not Applicable) - Bryce Garcia MD 07/14/2021 This is a pleasant 31 years old gentleman with history of his mother had colon cancer at age of 48.? He comes today to discuss potential screening colonoscopy.? Also reports his greateruncles both of them had colon cancer and they were from the mom's side.? Patient denies any weight loss or bleeding per rectum.? He does report change in bowel habits in the form of diarrhea and constipation but no evidence of mucus.? And he reports his sister of 51 years of age never had a colonoscopy before. Interim history 10/27/2021 Patient comes today for screening colonoscopy, Patient did talk with his sister to undergo screening colonoscopy. ROS All systems have been reviewed negative except as for the above or per problem list. Medications/Allergies* Home Medications Medication Instructions Recorded Confirmed Type doxycycline hyclate 100 mg tablet 100 mg PO BID 10/25/21 10/27/21 History Allergies/Adverse Reactions Allergy/AdvReac Type Severity Reaction Status Date / Time No Known Allergies Allergy Verified 08/25/21 13:40 Current Medications: Generic Name Dose Route Start Last Admin Trade Name Freq PRN Reason Stop Dose Admin Sodium Chloride 1,000 mls @ 30 mls/hr 10/27/21 07:30 10/27/21 07:40 Sodium Chloride 0.9% IV 30 mls/hr .Q24H [facility] Administration Pertinent History/Comorbid Conditions* Medical History (Updated 07/22/21 @ 08:54 by URSULA Shell) History of fracture of left ankle Surgical History (Updated 02/20/20 @ 21:54 by Madan Dean DPM) History of right knee surgery Family History (Updated 02/16/20 @ 11:23 by Porsha Gupta MA) Cancer Mother Hypertension Grandfather Grandmother Social History Smoking and tobacco status: never smoked Second hand smoke exposure: No Alcohol intake: never Pertinent Exam Findings alert, oriented x 3, regular rate & rhythm and procedure specific exam findings (Abdominal exam nontender nondistended soft) Recommendations Surgery/Procedure today (Screening colonoscopy) Coding Level of Care Code Acute Primary Care Coordinator for Dotty Glover
--- NOTE | 2021-10-27 08:25 | ANES.PREANE2 ---
Pre-Anesthetic Assessment Height/Weight: Height 1.73 m Weight 92.986 kg Temp Pulse Resp BP Pulse Ox O2 Del Method 97.3 F L 61 18 127/79 99 10/27/21 07:36 10/27/21 07:36 10/27/21 07:36 10/27/21 07:36 10/27/21 07:36 10/27/21 07:36 Preop Diagnosis: Family history of colon cancer Operation Date: 10/27/21 08:30 Proposed Procedures p Colonoscopy(Not Applicable) - Bryce Garcia MD Familial anesthetic complications: none Was Beta Yanely taken within 24 hours: N/A Was Clonidine taken within 24 hours: N/A Last intake: Intake Last Liquid Date 10/26/21 Last Liquid Time 22:00 Last Solid Date 10/25/21 Last Solid Time 18:00 Social No alcohol and No tobacco Exam alert, oriented x 3, clear to auscultation bilaterally and regular rate & rhythm Airway Submandibular: within normal limits Cervical ROM: within normal limits Mallampati: Class II Dentition: chipped Metabolic Morbid Obesity Anesthetic Plan ASA status: 2 Anesthesia: MAC Other: Tick borne illness--on doxy Medications/Allergies Home Medications Medication Instructions Recorded Confirmed Last Taken Type doxycycline hyclate 100 mg tablet 100 mg PO BID 10/25/21 10/27/21 10/26/21 History Allergies Allergy/AdvReac Type Severity Reaction Status Date / Time No Known Allergies Allergy Verified 08/25/21 13:40 Current Medications Generic Name Dose Route Start Last Admin Trade Name Freq PRN Reason Stop Dose Admin Sodium Chloride 1,000 mls @ 30 mls/hr 10/27/21 07:30 10/27/21 07:40 Sodium Chloride 0.9% IV 30 mls/hr .Q24H [facility] Administration PFSH Anesthesia Medical History History of fracture of left ankle Surgical History History of right knee surgery Family History Mother Cancer Grandfather Hypertension Grandmother Hypertension Social History Smoking and tobacco status: never smoked Second hand smoke exposure: No Alcohol intake: never Data Anesthesia Cardiac Studies: No Data to Display
[2021-10-27 08:46] VITALS: BP 104/63; PULSE 72; RESP 16; TEMP 36.1; O2SAT 93
[2021-10-27 08:51] VITALS: BP 105/64; PULSE 70; RESP 16; O2SAT 92
[2021-10-27 09:01] VITALS: BP 121/76; PULSE 54; RESP 18; O2SAT 98
--- NOTE | 2021-10-27 13:34 | ANE.PACU2 ---
Inpatient post-anesthesia follow up: Airway intact: Yes Vital signs: Temperature 97.0 F Pulse Rate 54 Respiratory Rate 18 Blood Pressure 121/76 Pulse Oximetry 98 Oxygen Delivery Me thod Room Air Oxygen Flow Rate Fraction of Inspir ed Oxygen Hydration adequate: Yes Nausea and vomiting: No Pain level: 1 Mental status: Baseline
== END 2021-10-27 09:25 | disposition home or self-care (01) ==
PROVIDERS: PCP Registered Nurse; Visit Provider Surgery
PROC: 0DJD8ZZ Inspection of Lower Intestinal Tract, Via Natural or Artificial Opening Endoscopic (ICD-10-PCS; CPT 45378; principal; 2021-10-27 08:30)
DX: Z12.11 Encounter for screening for malignant neoplasm of colon (principal); R19.7 Diarrhea, unspecified; K59.00 Constipation, unspecified; Z80.0 Family history of malignant neoplasm of digestive organs
CPT/HCPCS: 45378; J2704; J7030